=== PATIENT | female | born 1985 | race Caucasian/White ===

== ENCOUNTER 2016-06-09 21:16 | Emergency (ER) | payer BC ==
--- NOTE | ~2016-06-09 | CR21 ---
[facility] A Service of [facility] & [facility] RADIOLOGY TEXT RESULTS PATIENT: SILVANO MARKS LOCATION: SED : 85 UNIT #: [id number] AGE: [address]: MORENA MUHAMMAD SEX: F ORDER DR: [id number] [address] [address] [id number] E MR#: [id number] Acc #: [id number] NAME: SILVANO MARKS : 1985 SEX: F STUDY DATE/TIME: 06/09/2016 20:55 UNIT: SED ROOM: STUDY DESCRIPTION: CR Ankle Min 3 Views Rt Attending Physician: Morena Muhammad Ordering Physician: Benjamin Kee M.D. Primary Care Physician: Caitlin Anderson M.D. MEDICAL IMAGING REPORT This report is preliminary unless electronic signature is present. EXAM Right ankle 3 views, 06/09/2016 HISTORY Pain and swelling. Injured ankle playing volleyball. Came down on it and heard a pop. FINDINGS 3 views of the right ankle demonstrates soft tissue swelling over the lateral malleolus. No fracture identified. Minimal ankle effusion. Ankle mortise appears intact. The talus and subtalar joint appear normal. IMPRESSION Moderate lateral ankle soft tissue swelling and a small ankle effusion compatible soft tissue injury. No visible fracture. Dictated by... Daren Villalpando M.D. THIS IS AN ELECTRONICALLY VERIFIED REPORT Daren Villalpando M.D. at 06/10/2016 2:39 PM ASIF/diogo TD: 06/10/2016 04:09 JOB #: [id number] MEDICAL IMAGING REPORT Page 1 of 1
[~2016-06-09 21:16] MED LIST: NO MEDICATIONS; PREDNISONE PO
== END 2016-06-09 22:26 | disposition home or self-care (01) ==
LOC: SED 21:16
DX: S93.401A Sprain of unspecified ligament of right ankle, initial encounter (principal); F17.210 Nicotine dependence, cigarettes, uncomplicated; Y93.68 Activity, volleyball (beach) (court); Y92.009 Unspecified place in unspecified non-institutional (private) residence as the place of occurrence of the external cause
CPT/HCPCS: 29540; 73610; 99283